=== PATIENT | male | born 1930 | race Two or more races ===

== ENCOUNTER 2018-06-01 18:26 | Emergency (ER) | payer MEDICARE ==
[~2018-06-01] VITALS: Ht 185.4 cm; Wt 104.5 kg
[2018-06-01 18:40] VITALS: BP 0/0
== END 2018-06-01 22:48 | disposition expired ==
LOC: EMS 18:27
DX: I46.9 Cardiac arrest, cause unspecified (principal)
CPT/HCPCS: 99291